=== PATIENT | male | born 1940 | race Caucasian/White ===

== ENCOUNTER 2017-07-08 10:04 | Emergency (ER) | payer MEDICARE, OTHER ==
--- NOTE | 2017-07-08 10:09 | EDM.PDOC ---
ED HPI GENERAL MEDICAL PROBLEM - General Chief Complaint: Abdominal Pain Stated Complaint: [facility] Time Seen by Provider: 07/08/17 10:09 Source of Information: Reports: Patient History Limitations: Reports: No Limitations - History of Present Illness INITIAL COMMENTS - FREE TEXT/NARRATIVE: 76-year-old male sent up to [facility] from [facility] where he has been for the last day and a half. Patient states these developed initially quite bad heartburn on Wednesday and was seen as an outpatient in the clinic and released after a few hours. He was concerned because he eats fatty friends from having heartburn it turned out to be an inferior wall myocardial infarction. 4: 00 the same day he developed severe right upper quadrant epigastric abdominal pain which brought her back to the hospital. He was admitted and subsequently identified to have gallstones with suspect acute cholecystitis. His pain has been persistent. He has not had anything to eat since noon yesterday. He was sent to the hospital primarily for surgical consultation and management of acute cholecystitis. He was having problems with low oxygen levels and wheezing in the hospital. He denies that he's ever been a smoker. He is a retired schoolteacher. Previous surgeries include a appendectomy open and a left total hip and left total knee replacement. Labs done on the revealed an elevated white count at 14.9 this morning it was 13.9. There was a elevated neutrophil count on both. Creatinine has gone up from 1.2-2.1 since yesterday. I.e. not receiving enough fluids. His bilirubin is staying around 2.5. Alk phosphatase is been normal AST and ALTs normal glucose normal no lipase or amylase reported. He is afebrile on examination and rates his pain as a 3-4 out of 10 right upper quadrant with difficulty breathing. As this makes the pain worse. Patient reports he did have fever and very bad chills and rigors on the day of admission. Onset: Sudden Onset Date: 07/06/17 Onset Time: 01:30 (Limited to the hospital on the wee hours of the morning was discharged by 3:30 and returned later that day at 4 PM.) Duration: Day(s): Location: Reports: Abdomen Quality: Reports: Ache (Persistent right upper quadrant abdominal pain with intermittent nausea.), Pressure Severity: Moderate (Pain is high as 8 out of 10.) Improves with: Reports: Rest Worsens with: Reports: Other (And not breathing very deeply. Breathing deeply) Context: Denies: Activity, Exercise, Lifting, Sick Contact, Trauma, Other Associated Symptoms: Reports: Shortness of Breath (Fairly O2 sats of been running low when he's been placed on 2 L/m.). 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 (see below) Right Lower Abdomen Pain Score (Numeric/FACES): 5 - Related Data Allergies Allergy/AdvReac Type Severity Reaction Status Date / Time Sulfa (Sulfonamide Allergy Rash Verified 07/08/17 10:27 Antibiotics) Home Meds: Home Meds Allopurinol [Zyloprim] 100 mg PO DAILY 10/04/15 [History] Aspirin [Halfprin] 81 mg PO DAILY 10/04/15 [History] Calcium Carb/D3/Mag AA Chelate [Coral Calcium Capsule] 1 each PO DAILY 10/04/15 [History] Carvedilol [Coreg] 6.25 mg PO BID 10/04/15 [History] Cholecalciferol (Vitamin D3) [Vitamin D3] 2,000 unit PO DAILY 10/04/15 [History] Fluticasone Propionate [Flonase] 1 applic NASBOTH BID 10/04/15 [History] Hydrochlorothiazide 25 mg PO DAILY 10/04/15 [History] Lecithin 1,200 mg PO DAILY 10/04/15 [History] Lysine HCl [l-Lysine] 500 mg PO DAILY 10/04/15 [History] Multivit-Min/FA/Lycopene/Lut [Centrum Silver Tablet] 1 each PO DAILY 10/04/15 [ History] Niacin (Inositol Niacinate) [Niacin Flush Free] 400 mg PO DAILY 10/04/15 [ History] Potassium Gluconate 2 meq PO DAILY 10/04/15 [History] Psyllium with Sucrose [Metamucil] 1 each PO DAILY 10/04/15 [History] Rosuvastatin [Crestor] 5 mg PO DAILY 10/04/15 [History] Saw Semmes 1,000 mg PO DAILY 10/04/15 [History] Tamsulosin [Flomax] 0.4 mg PO DAILY 10/04/15 [History] Vitamin B Complex [Balanced B-50] 1 each PO DAILY 10/04/15 [History] Zinc Magnesium Aspartate 1 tab PO DAILY 10/04/15 [History] cloNIDine [Catapres] 0.1 mg PO BID 10/04/15 [History] metFORMIN [Glucophage] 850 mg PO BID 10/04/15 [History] Cider Vinegar [Apple Cider Vinegar] 1,000 mg PO DAILY 05/08/16 [History] Ubidecarenone [COQ-10] 300 mg PO BID 05/08/16 [History] amLODIPine Besylate/Benazepril [Lotrel 10-40 MG] 10 - 40 mg PO DAILY 05/08/16 [ History] Alleviate 2 cap PO BID 07/08/17 [History] Aloe Vera 50 mg PO BID 07/08/17 [History] Glucosamine/D3/Boswellia Destiny [Osteo Bi-Flex Caplet] 1 tab PO BID 07/08/17 [ History] Metoclopramide [Reglan] 10 mg PO TID PRN 07/08/17 [History] Omeprazole 40 mg PO DAILY 07/08/17 [History] True Bp 2 cap PO BID 07/08/17 [History] True Glucose 2 cap PO BID 07/08/17 [History] Vit C/Pérez & Celery Ex/Grp E [Tart Pérez] 1 cap PO DAILY 07/08/17 [History] Past Medical History HEENT History: Reports: Allergic Rhinitis, Sinusitis Other HEENT History: wears glasses Cardiovascular History: Reports: High Cholesterol, Hypertension (Severe and is on for blood pressure medications.). Denies: NV Other Cardiovascular History: irregular heart beat. corrected with coreg, aortic sclerosis Respiratory History: Reports: COPD, Sleep Apnea Other Respiratory History: uses cpap. also paralyzed right diaphragm. Gastrointestinal History: Reports: Other (See Below) Other Gastrointestinal History: constipation resolved with metamucil Genitourinary History: Reports: Prostate Disorder, Other (See Below) Other Genitourinary History: taeks flomax Musculoskeletal History: Reports: Gout (Usually attacking his feet. Currently on LP are 100 mg a day he weaned himself down from 300 mg daily.), Osteoarthritis Endocrine/Metabolic History: Reports: Diabetes, Type II, Obesity/BMI 30+, Vitamin D Deficiency Other Hematologic History: vitamin D deficiency Oncologic (Cancer) History: Reports: Basal Cell Carcinoma Dermatologic History: Reports: Eczema Other Dermatologic History: sensitive to adhesives - Past Surgical History HEENT Surgical History: Reports: Oral Surgery Cardiovascular Surgical History: Reports: Other (See Below) Musculoskeletal Surgical History: Reports: Arthroscopic Procedure, Knee Replacement, Other (See Below) Social & Family History - Family History Cardiac: Reports: Hypertension, NV Respiratory: Reports: COPD Neurological: Reports: Alzheimers Disease Endocrine/Metabolic: Reports: Diabetes, Type I - Tobacco Use Smoking Status *Q: Never Smoker Second Hand Smoke Exposure: No - Caffeine Use Caffeine Use: Reports: None - Alcohol Use Days Per Week of Alcohol Use: 3 Number of Drinks Per Day: 2 Total Drinks Per Week: 6 - Recreational Drug Use Recreational Drug Use: No Drug Use in Last 12 Months: No - Living Situation & Occupation Living situation: Reports: (Retired schoolteacher) Occupation: Retired ED ROS GENERAL - Review of Systems Review Of Systems: See Below Constitutional: Reports: Fever, Chills, Malaise, Weakness, Fatigue, Decreased Appetite HEENT: Reports: No Symptoms, Glasses Respiratory: Reports: Shortness of Breath. Denies: Wheezing, Pleuritic Chest Pain (Deep breathing makes the abdominal pain worse in the right upper quadrant. ), Cough, Sputum, Hemoptysis, Other Cardiovascular: Reports: Blood Pressure Problem, Dyspnea on Exertion (Mild in his feet.), Edema. Denies: Chest Pain, Claudication, Lightheadedness, Orthopnea (Severe hypertension) Endocrine: Reports: Fatigue GI/Abdominal: Reports: Abdominal Pain, Anorexia (Persistent right upper quadrant and epigastric pain for 2-1/2 days), Other (Last illness 5 days ago when he states he was not able to look at it to identify whether it was any change in color). Denies: Black Stool, Bloody Stool, Constipation, Difficulty Swallowing : Reports: Frequency, Other (Has BPH and is usually up twice per night) Musculoskeletal: Reports: Back Pain, Joint Pain (Mild intermittent chronic back pain. Left knee left hip have been replaced.) Skin: Reports: No Symptoms ( Far right side is good) Neurological: Reports: No Symptoms Psychiatric: Reports: No Symptoms Hematologic/Lymphatic: Reports: No Symptoms Immunologic: Reports: No Symptoms ED EXAM, GI/ABD - Physical Exam Exam: See Below Exam Limited By: No Limitations General Appearance: Alert, WD/WN, No Apparent Distress Eyes: Bilateral: Normal Appearance (No jaundice.) Nose: Normal Inspection, Normal Mucosa, No Blood Throat/Mouth: Normal Inspection, Normal Lips, Normal Teeth, Normal Oropharynx Head: Atraumatic, Normocephalic Neck: Normal Inspection, Supple, Non-Tender, Full Range of Motion. No: Lymphadenopathy (L), Lymphadenopathy (R) Respiratory/Chest: No Respiratory Distress, Lungs Clear, Normal Breath Sounds, No Accessory Muscle Use Cardiovascular: Normal Peripheral Pulses, Regular Rate, Rhythm, No Edema, No Murmur, JVD GI/Abdominal Exam: Normal Bowel Sounds, Soft, Tender (Right upper quadrant with a mildly positive Marsh sign.), Other (Appendectomy scar right lower quadrant) (Male) Exam: No Hernia Back Exam: Normal Inspection, Full Range of Motion. No: CVA Tenderness (L), CVA Tenderness (R) Extremities: Normal Inspection, Normal Range of Motion, Non-Tender, No Pedal Edema, Normal Capillary Refill Neurological: Alert, Oriented, CN II-XII Intact, Normal Cognition, Normal Gait Psychiatric: Normal Affect, Normal Mood Skin Exam: Warm, Dry, Intact, Normal Color, No Rash EKG INTERPRETATION EKG Date: 07/08/17 Time: 10:30 Rhythm: NSR Rate (Beats/Min): 80 Mcclave: LAD-Left Mcclave Deviation (Mild left axis deviation of -6) P-Wave: Present (First-degree AV block present) QRS: Other (Early R-wave transition. Consider right ventricular hypertrophy septal hypertrophy pattern Q waves noted in lead 3 and aVF consider old inferior wall myocardial infarction) ST-T: Normal QT: Normal EKG Interpretation Comments: Abnormal ECG Course - Vital Signs Last Recorded V/S: Last Vital Signs Temp 37.3 C 07/08/17 10:22 Pulse 82 07/08/17 10:22 Resp 26 H 07/08/17 10:22 BP 125/61 07/08/17 10:22 Pulse Ox 93 L 07/08/17 11:45 - Orders/Labs/Meds Orders: Active Orders 24 hr Category Date Time Status EKG Documentation Completion [RC] STAT Care 07/08/17 10:07 Active Oxygen Therapy [RC] ASDIRECTED Care 07/08/17 11:12 Active RT Aerosol Therapy [RC] ASDIRECTED Care 07/08/17 11:13 Active URINALYSIS W/MICROSCOPIC [UA W/MICROSCOPIC] [URIN] Stat Lab 07/08/17 10:08 Uncollected Piperacillin/Tazobactam [Zosyn] 4.5 gm Med 07/08/17 13:05 Active Sodium Chloride 0.9% [Normal Saline] 100 ml IV ONETIME Sodium Chloride 0.9% [Normal Saline] 1,000 ml Med 07/08/17 10:15 Active IV ASDIRECTED Medication Orders Sodium Chloride (Normal Saline) 1,000 mls @ 150 mls/hr IV ASDIRECTED MARGIE Last Admin: 07/08/17 11:53 Dose: 150 mls/hr Piperacillin Sod/Tazobactam (Sod 4.5 gm/ Sodium Chloride) 100 mls @ 200 mls/hr IV ONETIME ONE Stop: 07/08/17 13:34 Labs: Laboratory Tests 07/08/17 07/08/17 07/08/17 Range/Units 10:40 10:40 10:40 WBC 14.03 H (4.23-9.07) K/mm3 RBC 4.33 L (4.63-6.08) M/mm3 Hgb 14.1 (13.7-17.5) gm/L Hct 42.0 (40.1-51.0) % MCV 97.0 H (79.0-92.2) fl MCH 32.6 H (25.7-32.2) pg MCHC 33.6 (32.2-35.5) g/dl RDW Std Deviation 46.6 H (35.1-43.9) fL Plt Count 166 (163-337) K/mm3 MPV 9.4 (9.4-12.3) fl Neutrophils % (Manual) 81 H (40-60) % Band Neutrophils % 0 (0-10) % Lymphocytes % (Manual) 14 L (20-40) % Atypical Lymphs % 0 % Monocytes % (Manual) 5 (2-10) % Eosinophils % (Manual) 0 L (0.8-7.0) % Basophils % (Manual) 0 L (0.2-1.2) Platelet Estimate Adequate RBC Morph Comment Normal PT 11.6 (8.0-13.0) SECONDS INR 1.06 APTT 30 (22-36) SECONDS D-Dimer, Quantitative (0.19-0.59) mg/L Puncture Site ABG pH (7.35-7.45) ABG pCO2 (35.0-45.0) mmHg ABG pO2 (80.0-100.0) mmHg ABG HCO3 (22.0-26.0) meq/L ABG O2 Saturation (96.0-97.0) % ABG Base Excess (-2-2.0) Addy Test O2 Delivery Device FiO2 (21.00-100.00) % Sodium 139 (136-145) mEq/L Potassium 3.9 (3.5-5.1) mEq/L Chloride 101 (98-107) mEq/L Carbon Dioxide 29 (21-32) mEq/L Anion Gap 12.9 (5-15) BUN 33 H (7-18) mg/dL Creatinine 1.8 H (0.7-1.3) mg/dL Est Cr Clr Drug Dosing 34.83 mL/min Estimated GFR (MDRD) 37 (>60) mL/min BUN/Creatinine Ratio 18.3 H (14-18) Glucose 136 H (83-115) mg/dL Lactic Acid (0.4-2.0) mmol/L Calcium 8.7 (8.5-10.1) mg/dL Magnesium 2.2 (1.8-2.4) mg/dl Total Bilirubin 2.2 H (0.2-1.0) mg/dL AST 28 (15-37) U/L ALT 24 (16-63) U/L Alkaline Phosphatase 47 (46-116) U/L Troponin I < 0.017 (0.00-0.056) ng/mL C-Reactive Protein 40.3 H* (<1.0) mg/dL NT-Pro-B Natriuret Pep (0-125) pg/mL Total Protein 7.4 (6.4-8.2) g/dl Albumin 3.2 L (3.4-5.0) g/dl Globulin 4.2 gm/dL Albumin/Globulin Ratio 0.8 L (1-2) Lipase 57 L (73-393) U/L 07/08/17 07/08/17 07/08/17 Range/Units 10:40 10:40 10:40 WBC (4.23-9.07) K/mm3 RBC (4.63-6.08) M/mm3 Hgb (13.7-17.5) gm/L Hct (40.1-51.0) % MCV (79.0-92.2) fl MCH (25.7-32.2) pg MCHC (32.2-35.5) g/dl RDW Std Deviation (35.1-43.9) fL Plt Count (163-337) K/mm3 MPV (9.4-12.3) fl Neutrophils % (Manual) (40-60) % Band Neutrophils % (0-10) % Lymphocytes % (Manual) (20-40) % Atypical Lymphs % % Monocytes % (Manual) (2-10) % Eosinophils % (Manual) (0.8-7.0) % Basophils % (Manual) (0.2-1.2) Platelet Estimate RBC Morph Comment PT (8.0-13.0) SECONDS INR APTT (22-36) SECONDS D-Dimer, Quantitative 2.82 H (0.19-0.59) mg/L Puncture Site ABG pH (7.35-7.45) ABG pCO2 (35.0-45.0) mmHg ABG pO2 (80.0-100.0) mmHg ABG HCO3 (22.0-26.0) meq/L ABG O2 Saturation (96.0-97.0) % ABG Base Excess (-2-2.0) Addy Test O2 Delivery Device FiO2 (21.00-100.00) % Sodium (136-145) mEq/L Potassium (3.5-5.1) mEq/L Chloride (98-107) mEq/L Carbon Dioxide (21-32) mEq/L Anion Gap (5-15) BUN (7-18) mg/dL Creatinine (0.7-1.3) mg/dL Est Cr Clr Drug Dosing mL/min Estimated GFR (MDRD) (>60) mL/min BUN/Creatinine Ratio (14-18) Glucose (83-115) mg/dL Lactic Acid 1.3 (0.4-2.0) mmol/L Calcium (8.5-10.1) mg/dL Magnesium (1.8-2.4) mg/dl Total Bilirubin (0.2-1.0) mg/dL AST (15-37) U/L ALT (16-63) U/L Alkaline Phosphatase (46-116) U/L Troponin I (0.00-0.056) ng/mL C-Reactive Protein (<1.0) mg/dL NT-Pro-B Natriuret Pep 955 H (0-125) pg/mL Total Protein (6.4-8.2) g/dl Albumin (3.4-5.0) g/dl Globulin gm/dL Albumin/Globulin Ratio (1-2) Lipase (73-393) U/L 07/08/17 Range/Units 11:52 WBC (4.23-9.07) K/mm3 RBC (4.63-6.08) M/mm3 Hgb (13.7-17.5) gm/L Hct (40.1-51.0) % MCV (79.0-92.2) fl MCH (25.7-32.2) pg MCHC (32.2-35.5) g/dl RDW Std Deviation (35.1-43.9) fL Plt Count (163-337) K/mm3 MPV (9.4-12.3) fl Neutrophils % (Manual) (40-60) % Band Neutrophils % (0-10) % Lymphocytes % (Manual) (20-40) % Atypical Lymphs % % Monocytes % (Manual) (2-10) % Eosinophils % (Manual) (0.8-7.0) % Basophils % (Manual) (0.2-1.2) Platelet Estimate RBC Morph Comment PT (8.0-13.0) SECONDS INR APTT (22-36) SECONDS D-Dimer, Quantitative (0.19-0.59) mg/L Puncture Site Lt radial ABG pH 7.38 (7.35-7.45) ABG pCO2 45.6 H (35.0-45.0) mmHg ABG pO2 74.0 L (80.0-100.0) mmHg ABG HCO3 26.6 H (22.0-26.0) meq/L ABG O2 Saturation 91.6 L (96.0-97.0) % ABG Base Excess 1.6 (-2-2.0) Addy Test Positive O2 Delivery Device Nasal cannula FiO2 0.00 L (21.00-100.00) % Sodium (136-145) mEq/L Potassium (3.5-5.1) mEq/L Chloride (98-107) mEq/L Carbon Dioxide (21-32) mEq/L Anion Gap (5-15) BUN (7-18) mg/dL Creatinine (0.7-1.3) mg/dL Est Cr Clr Drug Dosing mL/min Estimated GFR (MDRD) (>60) mL/min BUN/Creatinine Ratio (14-18) Glucose (83-115) mg/dL Lactic Acid (0.4-2.0) mmol/L Calcium (8.5-10.1) mg/dL Magnesium (1.8-2.4) mg/dl Total Bilirubin (0.2-1.0) mg/dL AST (15-37) U/L ALT (16-63) U/L Alkaline Phosphatase (46-116) U/L Troponin I (0.00-0.056) ng/mL C-Reactive Protein (<1.0) mg/dL NT-Pro-B Natriuret Pep (0-125) pg/mL Total Protein (6.4-8.2) g/dl Albumin (3.4-5.0) g/dl Globulin gm/dL Albumin/Globulin Ratio (1-2) Lipase (73-393) U/L Meds: Medications Generic Name Dose Route Start Last Admin Trade Name Freq PRN Reason Stop Dose Admin Sodium Chloride 1,000 mls @ 150 mls/hr 07/08/17 10:15 07/08/17 11:53 Normal Saline IV 150 mls/hr ASDIRECTED MARGIE Administration Piperacillin Sod/Tazobactam 100 mls @ 200 mls/hr 07/08/17 13:05 Sod 4.5 gm/ Sodium Chloride IV 07/08/17 13:34 ONETIME ONE Discontinued Medications Generic Name Dose Route Start Last Admin Trade Name Freq PRN Reason Stop Dose Admin Acetaminophen 975 mg 07/08/17 12:44 Tylenol PO 07/08/17 12:45 NOW ONE Albuterol/Ipratropium 3 ml 07/08/17 11:12 07/08/17 11:39 Duoneb 3.0-0.5 Mg/3 Ml NEB 07/08/17 11:13 3 ml ONETIME ONE Administration Furosemide 40 mg 07/08/17 11:56 07/08/17 12:00 Lasix IVPUSH 07/08/17 11:57 40 mg NOW ONE Administration Hydromorphone HCl 0.5 mg 07/08/17 10:24 07/08/17 11:56 Dilaudid IVPUSH 07/08/17 10:25 0.5 mg ONETIME ONE Administration Cefoxitin Sodium 2 gm/ Premix 50 mls @ 100 mls/hr 07/08/17 12:57 IV 07/08/17 13:26 ONETIME ONE Metoclopramide HCl 10 mg 07/08/17 10:24 07/08/17 11:54 Reglan IVPUSH 07/08/17 10:25 10 mg ONETIME ONE Administration - Radiology Interpretation Free Text/Narrative:: 76-year-old male presents to the ED with recurrent right upper quadrant abdominal pain over the last 2-3 days so she with reflux-like symptoms. Identified to have low O2 sats of only 82% upon arrival to our hospital. He was placed on 2 L and is now on 3 L/m. A portable chest x-ray reveals poor inspirational film and diffuse vascular congestion pattern with normal no cardiomegaly. He has a history of severe hypertension is on medications 4 for hypertension. Ultrasound confirms multiple gallstones and CT suggested mild inflammation of the gallbladder wall compatible with acute cholecystitis. So far liver enzymes and pancreas enzymes have been normal bilirubin mildly elevated. The problem is his O2 sats of only 82% on room air and at never been a smoker. He is on CPAP machine because of obesity. Will be given a DuoNeb and labs will be done to look at congestive heart failure versus pulmonary embolism. At present he is not a candidate for surgery at this time. - Re-Assessments/Exams Free Text/Narrative Re-Assessment/Exam: 07/08/17 11:55 White count is elevated at 14.03 with differential pending. Hemoglobin is 14.1 with hematocrit of 42.0 platelet count 166,000. PT is 11.6 INR is 1.06 PTT is 30. D-dimer came back positive at 2.82. Sodium 139 potassium 3.9. Chloride 101 bicarbonate 29. Anion gap is 12.9. BUNs elevated at 33 creatinine is 1.8. This makes it very difficult to pursue CT pulmonary angiogram due to the elevated creatinine. EGFR is only 21/03/90 stage III chronic kidney disease. However he appears to be volume depleted with a BUNs 33. Glucose is 136 lactic acid 1.3. Calcium 8.7 magnesium normal at 2.2 total bilirubin is 2.2 AST is 28 ELT is 24 alkaline phosphatase days is 47 troponin I is less than 0.017. C-reactive protein is pending BNP is 955 indicating congestive heart failure. The reason for this is unclear. Lipase is 57. O2 sats are only 89% on room air likely due to congestive failure. Bumped up his oxygen to 5 L/m after ABGs will be done on 3 L/m. ordered Lasix 40 mg IV. His ABGs revealed a pH of 7.38 with a PCO2 of 45.6 a mild retention PCO2 of 74 with O2 sats of 91.6 on 3 L. 07/08/17 13:20 decision made to transfer the patient to [facility] in [place] where he has received care in the past. He requires sorting out of his heart condition as to why he is entered into heart failure suddenly. Question how much fluid he got in [place] IV. However with a BUNs of 33 he is acting like he is drying likely is suffering from pump failure. His heart is enlarged from chronic severe hypertension. Not known to have COPD. He is obese and does use CPAP machine at bedtime. Therefore before he is a surgical candidate he is hard of lung condition needs to be sorted out before he can have his gallbladder removed. I did give him a dose of Mefoxin 2 g in the ED as he is spiking a fever. He was given Tylenol 975 mg with a sip of water orally. Patient will trend be transferred to [facility] per [place] [facility] as the [place] ambulance is not yet available for repeat return transfer. Departure - Departure Time of Disposition: 13:52 Disposition: DC/Tfer to Acute Hospital 02 Condition: Fair Clinical Impression: Acute cholecystitis due to biliary calculus, Hypoxia, Chronic renal insufficiency, stage III (moderate), Obesity (BMI 30.0-34.9) CHF (congestive heart failure), NYHA class II Qualifiers: Congestive heart failure type: unspecified congestive heart failure type Qualified Code(s): I50.9 - Heart failure, unspecified Sleep apnea Qualifiers: Sleep apnea type: obstructive Qualified Code(s): G47.33 - Obstructive sleep apnea (adult) (pediatric) - Discharge Information Referrals: Jarvis Fitzgerald MD [Primary Care Provider] - Forms: ED Department Discharge - My Orders Last 24 Hours: My Active Orders 07/08/17 10:07 EKG Documentation Completion [RC] STAT 07/08/17 10:08 URINALYSIS W/MICROSCOPIC [UA W/MICROSCOPIC] [URIN] Stat 07/08/17 10:15 Sodium Chloride 0.9% [Normal Saline] 1,000 ml IV ASDIRECTED 07/08/17 11:12 Oxygen Therapy [RC] ASDIRECTED 07/08/17 11:13 RT Aerosol Therapy [RC] ASDIRECTED 07/08/17 13:05 Piperacillin/Tazobactam [Zosyn] 4.5 gm Sodium Chloride 0.9% [Normal Saline] 100 ml IV ONETIME - Assessment/Plan Last 24 Hours: My Active Orders 07/08/17 10:07 EKG Documentation Completion [RC] STAT 07/08/17 10:08 URINALYSIS W/MICROSCOPIC [UA W/MICROSCOPIC] [URIN] Stat 07/08/17 10:15 Sodium Chloride 0.9% [Normal Saline] 1,000 ml IV ASDIRECTED 07/08/17 11:12 Oxygen Therapy [RC] ASDIRECTED 07/08/17 11:13 RT Aerosol Therapy [RC] ASDIRECTED 07/08/17 13:05 Piperacillin/Tazobactam [Zosyn] 4.5 gm Sodium Chloride 0.9% [Normal Saline] 100 ml IV ONETIME
[2017-07-08] MEDS ORDERED: Sodium Chloride 0.9% 1,000 ML IV SCH (10:15)
[2017-07-08] MEDS ORDERED: HYDROmorphone 0.5 MG/0.5 ML Syringe IVPUSH ONE (10:24)
[2017-07-08] MEDS ORDERED: Metoclopramide 10 MG/2 ML SDV IVPUSH ONE (10:24)
[2017-07-08 10:27] VITALS: BP 125/61
[2017-07-08] MEDS ORDERED: Albuterol/Ipratropium 3.0-0.5 MG/3 ML Neb Soln NEB ONE (11:12)
--- NOTE | 2017-07-08 11:34 | CR ---
Chest: Portable view of the chest was obtained. Comparison: No prior chest x-ray. Heart size is normal. Tortuous thoracic aorta is seen. Lungs are clear. Bony structures are grossly intact. Impression: 1. Nothing acute is appreciated on portable chest x-ray. Diagnostic code #1
[2017-07-08] MEDS ORDERED: Furosemide 40 MG/4 ML VIAL IVPUSH ONE (11:56)
[2017-07-08] MEDS ORDERED: Acetaminophen 325 MG Tab PO ONE (12:44)
[2017-07-08] MEDS ORDERED: cefOXitin 2 GM in Premix Bag 1 BAG IV ONE (12:57)
[2017-07-08] MEDS ORDERED: Piperacillin/Tazobactam 4.5 GM in Sodium Chloride 0.9% 100 ML IV ONE (13:05)
== END 2017-07-08 14:20 ==
LOC: JD.ED 10:04
DX: K80.00 Calculus of gallbladder with acute cholecystitis without obstruction (principal); I13.0 Hypertensive heart and chronic kidney disease with heart failure and stage 1 through stage 4 chronic kidney disease, or unspecified chronic kidney disease; E11.22 Type 2 diabetes mellitus with diabetic chronic kidney disease; N18.3 Chronic kidney disease, stage 3 (moderate); I50.9 Heart failure, unspecified; J44.9 Chronic obstructive pulmonary disease, unspecified; G47.33 Obstructive sleep apnea (adult) (pediatric); E78.00 Pure hypercholesterolemia, unspecified; Z79.84 Long term (current) use of oral hypoglycemic drugs; Z79.899 Other long term (current) drug therapy; Z88.2 Allergy status to sulfonamides
CPT/HCPCS: 36415; 36600; 71010; 80053; 81001; 82803; 83605; 83690; 83735; 83880; 84484; 85025; 85379; 85610; 85730; 86140; 93005; 94640; 96361; 96365; 96375; 99285; A9270; J0694; J1170; J1940; J2543; J2765; J7030; J7040; 93010

== ENCOUNTER 2024-05-31 06:10 | Day surgery (SDC) | payer MEDICARE, OTHER ==
[~2024-05-31 06:10] MED LIST: Lactated Ringers 1,000 ML IV SCH; Morphine 8 MG, EPINEPHrine 0.3 MG, Cefuroxime 750 MG, Ketorolac 30 MG, Sodium Chloride ... PRN; Sodium Chloride 0.9% 10 ML Syringe FLUSH PRN; Sodium Chloride 0.9% 10 ML Syringe FLUSH SCH
[2024-05-31] MEDS ORDERED: Propofol 200 MG/20 ML SDV ONE ×5 (06:47→08:17)
[2024-05-31] MEDS ORDERED: Ondansetron 4 MG/2 ML SDV ONE (06:50)
[2024-05-31 06:58] LABS: INR 1.03; PROTHROMBIN TIME 10.9 SECONDS (9.7-12.0)
[2024-05-31 07:00] LABS: PTT,PARTIAL THROMBOPLSTIN TIME 25.6 SECONDS (21.7-31.4)
[2024-05-31] MEDS ORDERED: ePHEDrine 50 MG/ML SDV ONE (07:35)
[2024-05-31] MEDS ORDERED: ceFAZolin 2 GM Vial ONE (07:49)
[2024-05-31] MEDS ORDERED: fentaNYL 100 MCG/2 ML SDV IVPUSH PRN (08:24)
[2024-05-31] MEDS ORDERED: Lactated Ringers 1,000 ML IV ONE (08:25)
[2024-05-31] MEDS: Morphine 8 MG, EPINEPHrine 0.3 MG, Cefuroxime 750 MG, Ketorolac 30 MG, Sodium Chloride ... PRN (08:42)
[2024-05-31] MEDS: Tranexamic Acid 1,000 MG/10 ML Vial ONE (08:42)
[2024-05-31] MEDS: Acetaminophen/HYDROcodone 325-5 MG Tab PO PRN (11:06)
[2024-05-31 13:21] VITALS: BP 127/70; PULSE 78
[2024-06-02] MEDS: Vancomycin 1 GM SDV ONE (08:42)
== END 2024-05-31 13:20 | disposition home or self-care (01) ==
LOC: JD.SDS 06:10
PROVIDERS: ATTEND Orthopaedic Surgery
DX: M16.11 Unilateral primary osteoarthritis, right hip (principal); E11.9 Type 2 diabetes mellitus without complications; E78.00 Pure hypercholesterolemia, unspecified; J44.9 Chronic obstructive pulmonary disease, unspecified; G47.30 Sleep apnea, unspecified; Z79.84 Long term (current) use of oral hypoglycemic drugs; Z79.899 Other long term (current) drug therapy; Z88.2 Allergy status to sulfonamides
CPT/HCPCS: 0055T; 27130; 36415; 73501; 85610; 85730; 97110; 97161; C1713; C1776; J0171; J0690; J0697; J1885; J2270; J2405; J2704; J3370; J7120; 01402; 99100; A9270-GY; J3490